=== PATIENT | male | born 1940 | race Caucasian/White ===

== ENCOUNTER 2018-08-29 11:15 | Emergency (ER) | payer MEDICARE, MEDICAID ==
[~2018-08-29] VITALS: Ht 167.6 cm; Wt 72.0 kg
[2018-08-29 11:15] VITALS: BP 128/69
--- NOTE | 2018-08-29 11:15 | NUR ---
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
--- NOTE | 2018-08-29 12:00 | NUR ---
pt upright on gurney awake & calm, pt refused to allow staff to lock up personal belongings- security able to retrieve them from pt, responds to staff but easily agitated (threatening to evens, threatening to leave AMA), NAD, comfort measures provided, pt in safe environment, sitter in view. personal belongings in bag x1 placed in locker.
[2018-08-29] MEDS ORDERED: Oxycodone PO (12:15)
[2018-08-29] MEDS ORDERED: DIVA500T2 PO (12:15)
[2018-08-29] MEDS ORDERED: METH5TAB2 PO (12:15)
[2018-08-29] MEDS ORDERED: MULT-658 PO (12:15)
[2018-08-29] MEDS ORDERED: OXYC10TA47 PO (12:15)
[2018-08-29 13:55] LABS: AMPHETAMINE SCREEN, URINE Negative (Negative); BARBITURATE SCREEN, URINE Negative (Negative); BENZODIAZEPINE SCREEN, URINE Negative (Negative); CANNABINOID SCREEN, URINE Negative (Negative); COCAINE SCREEN, URINE Negative (Negative); METHADONE SCREEN, URINE Positive (Negative); OPIATE SCREEN, URINE Positive (Negative)
[2018-08-29 13:57] LABS: MICROSCOPIC NOT IND
[2018-08-29 14:00] LABS: CULTURE INDICATED? NO
--- NOTE | 2018-08-29 14:02 | NUR ---
pt pacing in room, easily agitated- redirection minimally helpful, NAD, comfort measures provided, pt remains in safe environment, sitter in view.
[2018-08-29] MEDS ORDERED: ZIPRASIDONE 20 MG INJ IM ONE ×2 (14:08→14:30)
--- NOTE | 2018-08-29 14:22 | NUR ---
pt became increasingly agitated with staff, refuses to listen to answers of questions he asks, aggressively approaching staff getting within 1 foot of personal space, attepting to leave facility; security called to assist in redirecting/calming pt but unsuccessful, ERP aware, pt medicated per eMAR & soft restraints to BUE placed for pt/staff safety. Addendum: 08/29/18 at 1537 by AMANDA pt became increasingly agitated with staff, refuses to listen to answers to questions he asks, aggressively approaching staff getting within 1 foot of personal space, attempting to leave facility; security called to assist in redirecting/calming pt but unsuccessful, ERP aware, pt medicated per eMAR & soft restraints to BUE placed for pt/staff safety.
--- NOTE | 2018-08-29 15:03 | NUR ---
pt awake awake, calmer & more cooperative now that daughter (Tele) is at BS, NAD, comfort measures provided, pt remains in safe environment with soft restraints in place, sitter in view.
[2018-08-29 15:06] LABS: BASOPHILS # (AUTO) 0.03 x10^3/uL (0-0.1); BASOPHILS % (AUTO) 0 % (0-1); EOSINOPHILS # (AUTO) 0.09 x10^3/uL (0-0.4); EOSINOPHILS % (AUTO) 1 % (1-7); LYMPHOCYTES # (AUTO) 1.51 x10^3/uL (1-3.4); LYMPHOCYTES % (AUTO) 17 % (22-44); MD NO; MEAN CORPUSCULAR HEMOGLOBIN 30.7 pg (27.5-34.5); MEAN CORPUSCULAR VOLUME 93.2 fL (81-97); MEAN PLATELET VOLUME 10.6 fL (7.4-10.4); MONOCYTES # (AUTO) 0.52 x10^3/uL (0.2-0.8); MONOCYTES % (AUTO) 6 % (2-9); NEUTROPHILS # (AUTO) 6.51 x10^3/uL (1.8-6.8); NEUTROPHILS % (AUTO) 75 % (42-75); PLATELET COUNT 205 x10^3/uL (130-400); RED BLOOD COUNT 4.63 x10^6/uL (4.38-5.82); RED CELL DISTRIBUTION WIDTH 14.8 % (9.4-14.8)
[2018-08-29 15:17] LABS: ALBUMIN 3.4 g/dL (3.4-5.0); ANION GAP 10 mmol/L (5-15); CALCIUM 8.8 mg/dL (8.5-10.1); CHLORIDE 106 mmol/L (98-107); CREATININE 1.11 mg/dL (0.7-1.3)
[2018-08-29 15:23] LABS: ACETAMINOPHEN < 2 mcg/mL (10-30); SALICYLATE LEVEL < 1.7 mg/dL (2.8-20.0)
--- NOTE | 2018-08-29 16:02 | NUR ---
pt upright on gurney awake, mostly calm & cooperative, NAD, comfort measures provided, pt remains in safe environment with soft restraints in place, twylater at BS, sitter in view.
--- NOTE | 2018-08-29 16:05 | NUR ---
pt calmer & verbalized understanding of restraint placement & DC, restraints DC'd, pt assessed by RN from 3E, pt to be DC'd & readmitted to 3E at ~1800 tonight.
--- NOTE | 2018-08-29 17:01 | NUR ---
pt upright on gurney awake, mostly calm & cooperative, NAD, comfort measures provided, pt remains in safe environment, daughter at BS, sitter in view, dinner tray given.
--- NOTE | 2018-08-29 17:20 | NUR ---
Patient & daughter given discharge instructions and they have confirmed that they understand the instructions. Patient ambulatory with steady gait, transferred to 3E rm 387, JODY Morgan.
== END 2018-08-29 17:58 ==
LOC: ED 13:44
DX: F99 Mental disorder, not otherwise specified (principal); R45.850 Homicidal ideations; Z91.14 Patient's other noncompliance with medication regimen
CPT/HCPCS: 36415; 80048; 80307; 80329; 81003; 82040; 85025; 96372; 99285; J3486; G0480

== ENCOUNTER 2018-08-29 16:06 | Inpatient (IN) | payer MEDICARE, MEDICAID ==
[~2018-08-29] VITALS: Ht 168.9 cm; Wt 67.8 kg
[~2018-08-29 16:06] MED LIST: DIVA500T2 PO; METH5TAB2 PO; MULT-658 PO; OXYC10TA47 PO; Oxycodone PO
[2018-08-29] MEDS ORDERED: ONDANSETRON ODT 4 MG PO PRN (16:30)
[2018-08-29] MEDS ORDERED: BISACODYL 10 MG SUPP PR PRN (16:30)
[2018-08-29] MEDS ORDERED: POLYETHYLENE GLYCOL 17 GM PACKET PO PRN (16:30)
[2018-08-29] MEDS: OxyconTIN ER 10 MG TAB.ER PO SCH ×2 (20:45→22:54)
[2018-08-29] MEDS: QUETIAPINE 25MG TABLET PO SCH ×2 (20:46→22:54)
[2018-08-29] MEDS: DIVALPROEX 250 MG TABLET.DR PO SCH ×2 (20:46→22:53)
[2018-08-29 20:50] VITALS: BP 176/90
[2018-08-30] MEDS: DIVALPROEX 250 MG TABLET.DR PO SCH (08:43)
[2018-08-30] MEDS: METHADONE 5 MG TABLET PO SCH ×3 (08:43→17:39)
[2018-08-30] MEDS: OxyconTIN ER 10 MG TAB.ER PO SCH ×2 (08:44→21:00)
[2018-08-30] MEDS: MULTIVITAMIN 1 TABLET PO SCH (08:44)
[2018-08-30] MEDS: SENNA/DOCUSATE TABLET PO SCH (08:44)
[2018-08-30] MEDS: AMLODIPINE 2.5 MG TABLET PO SCH (18:15)
[2018-08-30 18:51] LABS: HEMOGLOBIN A1C 6.1 % (4.2-6.3)
[2018-08-30 19:25] VITALS: BP 106/66
[2018-08-30] MEDS ORDERED: QUETIAPINE 25MG TABLET PO SCH (21:00)
[2018-08-30] MEDS: DIVALPROEX 500 MG TABLET.DR PO SCH (21:00)
[2018-08-31] MEDS: METHADONE 5 MG TABLET PO SCH ×2 (08:40→17:07)
[2018-08-31] MEDS: DIVALPROEX 500 MG TABLET.DR PO SCH (08:41)
[2018-08-31] MEDS: MULTIVITAMIN 1 TABLET PO SCH (08:41)
[2018-08-31] MEDS: AMLODIPINE 2.5 MG TABLET PO SCH (08:41)
[2018-08-31] MEDS: ESTRADIOL 1 MG TABLET PO SCH (08:41)
[2018-08-31] MEDS: OxyconTIN ER 10 MG TAB.ER PO SCH ×2 (08:41→21:00)
[2018-08-31] MEDS: SENNA/DOCUSATE TABLET PO SCH (08:41)
[2018-08-31 17:57] VITALS: BP 135/73
[2018-08-31 18:05] LABS: HCT (SEDRATE) 43.5 % (39.2-51.8)
[2018-08-31 18:16] LABS: ANION GAP 7 mmol/L (5-15); CALCIUM 8.5 mg/dL (8.5-10.1); CHLORIDE 107 mmol/L (98-107); CHOLESTEROL, TOTAL 147 mg/dL (140-239); CREATININE 1.02 mg/dL (0.7-1.3); TRIGLYCERIDES 119 mg/dL (50-200); VLDL CHOLESTEROL 24 mg/dL (0-25)
[2018-08-31 18:41] LABS: CHOL/HDL RATIO 4.3; HDL CHOL % 23 % (26-37); HDL CHOLESTEROL (DIRECT) 34 mg/dL (40-60); LDL CHOLESTEROL,CALCULATED 89 mg/dL (54-169); LDL/HDL RATIO 2.6 (0.5-3.0)
[2018-08-31 18:42] LABS: T4 (THYROXINE) 7.8 mcg/dL (4.5-12.1); THYROID STIMULATING HORMONE 0.631 mIU/L (0.358-3.740)
[2018-08-31] MEDS: DIVALPROEX 125 MG CAP.SPRINK PO SCH (19:58)
[2018-08-31] MEDS: HALOPERIDOL 2 MG/ML ORAL SOL PO SCH (19:58)
[2018-08-31] MEDS: QUETIAPINE 25MG TABLET PO PRN (21:53)
[2018-09-01 07:27] VITALS: BP 128/64
[2018-09-01] MEDS: DIVALPROEX 125 MG CAP.SPRINK PO SCH ×2 (09:03→19:24)
[2018-09-01] MEDS: ESTRADIOL 1 MG TABLET PO SCH (09:03)
[2018-09-01] MEDS: AMLODIPINE 2.5 MG TABLET PO SCH (09:03)
[2018-09-01] MEDS: MULTIVITAMIN 1 TABLET PO SCH (09:03)
[2018-09-01] MEDS: OxyconTIN ER 10 MG TAB.ER PO SCH ×2 (09:03→19:24)
[2018-09-01] MEDS: SENNA/DOCUSATE TABLET PO SCH (09:03)
[2018-09-01] MEDS: METHADONE 5 MG TABLET PO SCH ×2 (09:04→16:14)
[2018-09-01] MEDS: HALOPERIDOL 2 MG/ML ORAL SOL PO SCH ×3 (09:04→19:25)
[2018-09-01 19:39] VITALS: BP 124/67
--- NOTE | 2018-09-01 21:52 | NUR ---
MIGUEL VILLALBA - Fall Risk Medications present and NOT receiving anticoagulants. Signed: 09/01/18 at 2152 by Yovanny PATRICK
[2018-09-01 22:03] VITALS: BP 163/82
[2018-09-02] MEDS: ACETAMINOPHEN 325 MG TABLET PO PRN (05:54)
[2018-09-02 07:16] VITALS: BP 129/78
[2018-09-02] MEDS: ESTRADIOL 1 MG TABLET PO SCH (08:15)
[2018-09-02] MEDS: HALOPERIDOL 2 MG/ML ORAL SOL PO SCH ×3 (08:15→19:31)
[2018-09-02] MEDS: AMLODIPINE 2.5 MG TABLET PO SCH (08:16)
[2018-09-02] MEDS: METHADONE 5 MG TABLET PO SCH ×2 (08:16→16:43)
[2018-09-02] MEDS: MULTIVITAMIN 1 TABLET PO SCH (08:16)
[2018-09-02] MEDS: OxyconTIN ER 10 MG TAB.ER PO SCH (08:16)
[2018-09-02] MEDS: DIVALPROEX 125 MG CAP.SPRINK PO SCH ×2 (08:16→19:30)
[2018-09-02] MEDS: SENNA/DOCUSATE TABLET PO SCH (08:17)
[2018-09-02] MEDS: OXYcodone IR 5MG TABLET PO PRN ×2 (11:12→23:38)
[2018-09-02 19:24] VITALS: BP 143/81
[2018-09-02] MEDS ORDERED: OxyconTIN ER 10 MG TAB.ER PO SCH (21:00)
[2018-09-03 07:13] VITALS: BP 130/76
[2018-09-03] MEDS: HALOPERIDOL 2 MG/ML ORAL SOL PO SCH ×3 (08:13→20:14)
[2018-09-03] MEDS: DIVALPROEX 125 MG CAP.SPRINK PO SCH ×2 (08:13→20:13)
[2018-09-03] MEDS: METHADONE 5 MG TABLET PO SCH ×2 (08:14→16:04)
[2018-09-03] MEDS: MULTIVITAMIN 1 TABLET PO SCH (08:14)
[2018-09-03] MEDS: AMLODIPINE 2.5 MG TABLET PO SCH (08:14)
[2018-09-03] MEDS: ESTRADIOL 1 MG TABLET PO SCH (08:14)
[2018-09-03] MEDS: SENNA/DOCUSATE TABLET PO SCH (09:00)
[2018-09-03] MEDS: QUETIAPINE 25MG TABLET PO PRN (18:00)
[2018-09-03 19:29] VITALS: BP 141/80
[2018-09-04] MEDS: SENNA/DOCUSATE TABLET PO SCH (08:52)
[2018-09-04] MEDS: ESTRADIOL 1 MG TABLET PO SCH (08:52)
[2018-09-04] MEDS: METHADONE 5 MG TABLET PO SCH ×2 (08:52→17:11)
[2018-09-04] MEDS: AMLODIPINE 2.5 MG TABLET PO SCH (08:52)
[2018-09-04] MEDS: MULTIVITAMIN 1 TABLET PO SCH (08:52)
[2018-09-04] MEDS: HALOPERIDOL 2 MG/ML ORAL SOL PO SCH ×3 (08:52→20:03)
[2018-09-04] MEDS: DIVALPROEX 125 MG CAP.SPRINK PO SCH ×2 (08:53→20:03)
[2018-09-04 09:39] VITALS: BP 91/54
[2018-09-04 20:04] VITALS: BP 114/64
[2018-09-05 07:21] VITALS: BP 122/76
[2018-09-05] MEDS: HALOPERIDOL 2 MG/ML ORAL SOL PO SCH ×3 (08:48→19:40)
[2018-09-05] MEDS: DIVALPROEX 125 MG CAP.SPRINK PO SCH ×2 (08:48→19:39)
[2018-09-05] MEDS: ESTRADIOL 1 MG TABLET PO SCH (08:48)
[2018-09-05] MEDS: MULTIVITAMIN 1 TABLET PO SCH (08:49)
[2018-09-05] MEDS: METHADONE 5 MG TABLET PO SCH ×2 (08:49→16:17)
[2018-09-05] MEDS: AMLODIPINE 2.5 MG TABLET PO SCH (08:49)
[2018-09-05] MEDS: SENNA/DOCUSATE TABLET PO SCH (08:57)
[2018-09-05 19:29] VITALS: BP 136/77
[2018-09-05] MEDS: ACETAMINOPHEN 325 MG TABLET PO PRN (19:40)
[2018-09-05] MEDS: QUETIAPINE 25MG TABLET PO PRN (20:00)
[2018-09-06 07:15] VITALS: BP 156/83
[2018-09-06] MEDS: HALOPERIDOL 2 MG/ML ORAL SOL PO SCH ×3 (08:08→19:56)
[2018-09-06] MEDS: MULTIVITAMIN 1 TABLET PO SCH (09:00)
[2018-09-06] MEDS: SENNA/DOCUSATE TABLET PO SCH (09:00)
[2018-09-06] MEDS: METHADONE 5 MG TABLET PO SCH ×2 (09:00→16:41)
[2018-09-06] MEDS: ESTRADIOL 1 MG TABLET PO SCH (13:27)
[2018-09-06] MEDS: AMLODIPINE 2.5 MG TABLET PO SCH (13:27)
[2018-09-06] MEDS: DIVALPROEX 125 MG CAP.SPRINK PO SCH ×2 (13:27→19:56)
[2018-09-06] MEDS: OXYcodone IR 5MG TABLET PO PRN (13:37)
[2018-09-06 19:14] VITALS: BP 126/78
[2018-09-07 08:00] VITALS: BP 121/64
[2018-09-07] MEDS: MULTIVITAMIN 1 TABLET PO SCH (08:21)
[2018-09-07] MEDS: ESTRADIOL 1 MG TABLET PO SCH (08:21)
[2018-09-07] MEDS: DIVALPROEX 125 MG CAP.SPRINK PO SCH ×2 (08:21→19:41)
[2018-09-07] MEDS: METHADONE 5 MG TABLET PO SCH ×2 (08:21→16:18)
[2018-09-07] MEDS: AMLODIPINE 2.5 MG TABLET PO SCH (08:21)
[2018-09-07] MEDS: HALOPERIDOL 2 MG/ML ORAL SOL PO SCH ×3 (08:21→19:41)
[2018-09-07] MEDS: SENNA/DOCUSATE TABLET PO SCH (08:22)
[2018-09-07] MEDS: QUETIAPINE 25MG TABLET PO PRN (16:32)
[2018-09-07] MEDS: OXYcodone IR 5MG TABLET PO PRN (17:53)
[2018-09-07 19:39] VITALS: BP 120/74
[2018-09-08 07:13] VITALS: BP 144/82
[2018-09-08] MEDS: DIVALPROEX 125 MG CAP.SPRINK PO SCH ×2 (08:18→20:13)
[2018-09-08] MEDS: MULTIVITAMIN 1 TABLET PO SCH (08:18)
[2018-09-08] MEDS: ESTRADIOL 1 MG TABLET PO SCH (08:18)
[2018-09-08] MEDS: SENNA/DOCUSATE TABLET PO SCH (08:18)
[2018-09-08] MEDS: HALOPERIDOL 2 MG/ML ORAL SOL PO SCH ×5 (08:19→21:00)
[2018-09-08] MEDS: METHADONE 5 MG TABLET PO SCH ×2 (08:19→16:15)
[2018-09-08] MEDS: AMLODIPINE 2.5 MG TABLET PO SCH (08:19)
[2018-09-09 07:05] VITALS: BP 150/74
[2018-09-09] MEDS: MULTIVITAMIN 1 TABLET PO SCH (08:06)
[2018-09-09] MEDS: ESTRADIOL 1 MG TABLET PO SCH (08:06)
[2018-09-09] MEDS: METHADONE 5 MG TABLET PO SCH ×2 (08:06→17:13)
[2018-09-09] MEDS: DIVALPROEX 125 MG CAP.SPRINK PO SCH ×3 (08:07→20:25)
[2018-09-09] MEDS: AMLODIPINE 2.5 MG TABLET PO SCH (08:07)
[2018-09-09] MEDS: SENNA/DOCUSATE TABLET PO SCH (08:11)
[2018-09-09] MEDS: HALOPERIDOL 2 MG/ML ORAL SOL PO SCH ×3 (14:54→20:25)
[2018-09-09] MEDS: OXYcodone IR 5MG TABLET PO PRN (15:53)
[2018-09-09 19:25] VITALS: BP 132/75
[2018-09-09] MEDS: QUETIAPINE 25MG TABLET PO PRN (21:53)
[2018-09-10] MEDS: DIVALPROEX 125 MG CAP.SPRINK PO SCH ×2 (09:08→20:03)
[2018-09-10] MEDS: MULTIVITAMIN 1 TABLET PO SCH (09:09)
[2018-09-10] MEDS: AMLODIPINE 2.5 MG TABLET PO SCH (09:09)
[2018-09-10] MEDS: METHADONE 5 MG TABLET PO SCH ×2 (09:09→16:47)
[2018-09-10] MEDS: SENNA/DOCUSATE TABLET PO SCH (09:09)
[2018-09-10] MEDS: ESTRADIOL 1 MG TABLET PO SCH (09:09)
[2018-09-10] MEDS: HALOPERIDOL 2 MG/ML ORAL SOL PO SCH ×3 (09:09→20:02)
[2018-09-10 13:45] VITALS: BP 154/72
[2018-09-10 19:50] VITALS: BP 137/74
[2018-09-10] MEDS: QUETIAPINE 25MG TABLET PO PRN (20:02)
[2018-09-10] MEDS: OXYcodone IR 5MG TABLET PO PRN (22:12)
[2018-09-11 07:43] VITALS: BP 113/67
[2018-09-11] MEDS: AMLODIPINE 2.5 MG TABLET PO SCH (08:57)
[2018-09-11] MEDS: MULTIVITAMIN 1 TABLET PO SCH (08:57)
[2018-09-11] MEDS: ESTRADIOL 1 MG TABLET PO SCH (08:57)
[2018-09-11] MEDS: METHADONE 5 MG TABLET PO SCH ×2 (08:58→17:05)
[2018-09-11] MEDS: SENNA/DOCUSATE TABLET PO SCH (08:58)
[2018-09-11] MEDS: DIVALPROEX 125 MG CAP.SPRINK PO SCH ×2 (08:58→21:12)
[2018-09-11] MEDS: HALOPERIDOL 2 MG/ML ORAL SOL PO SCH ×3 (08:58→21:12)
[2018-09-11] MEDS: OXYcodone IR 5MG TABLET PO PRN ×2 (18:08→22:33)
[2018-09-11 20:55] VITALS: BP 144/85
[2018-09-11] MEDS: QUETIAPINE 25MG TABLET PO PRN (21:12)
[2018-09-12 07:37] VITALS: BP 113/67
[2018-09-12] MEDS: ESTRADIOL 1 MG TABLET PO SCH (08:34)
[2018-09-12] MEDS: DIVALPROEX 125 MG CAP.SPRINK PO SCH ×2 (08:34→20:02)
[2018-09-12] MEDS: AMLODIPINE 2.5 MG TABLET PO SCH (08:34)
[2018-09-12] MEDS: SENNA/DOCUSATE TABLET PO SCH (08:34)
[2018-09-12] MEDS: MULTIVITAMIN 1 TABLET PO SCH (08:34)
[2018-09-12] MEDS: METHADONE 5 MG TABLET PO SCH ×2 (08:34→17:18)
[2018-09-12] MEDS: HALOPERIDOL 2 MG/ML ORAL SOL PO SCH ×3 (10:22→20:03)
[2018-09-12 19:33] VITALS: BP 146/77
[2018-09-12] MEDS: QUETIAPINE 25MG TABLET PO PRN (20:03)
[2018-09-13] MEDS: METHADONE 5 MG TABLET PO SCH ×2 (08:00→16:19)
[2018-09-13] MEDS: DIVALPROEX 125 MG CAP.SPRINK PO SCH ×2 (09:00→20:37)
[2018-09-13] MEDS: AMLODIPINE 2.5 MG TABLET PO SCH (09:00)
[2018-09-13] MEDS: MULTIVITAMIN 1 TABLET PO SCH (09:00)
[2018-09-13] MEDS: HALOPERIDOL 2 MG/ML ORAL SOL PO SCH ×3 (09:00→20:37)
[2018-09-13] MEDS: ESTRADIOL 1 MG TABLET PO SCH (09:00)
[2018-09-13] MEDS: SENNA/DOCUSATE TABLET PO SCH (09:00)
[2018-09-13] MEDS: OXYcodone IR 5MG TABLET PO PRN (17:31)
[2018-09-13] MEDS ORDERED: HALO2ORA9 PO (17:43)
[2018-09-13] MEDS ORDERED: ESTR1TAB15 PO (17:43)
[2018-09-13] MEDS ORDERED: MULT1TAB60 PO (17:43)
[2018-09-13] MEDS ORDERED: DIVA125C2 PO (17:43)
[2018-09-13] MEDS ORDERED: AMLO2.5T5 PO (17:43)
[2018-09-13 19:47] VITALS: BP 155/82
[2018-09-13] MEDS: QUETIAPINE 25MG TABLET PO PRN (20:37)
[2018-09-14 07:44] VITALS: BP 132/71
[2018-09-14] MEDS: ESTRADIOL 1 MG TABLET PO SCH (08:50)
[2018-09-14] MEDS: METHADONE 5 MG TABLET PO SCH (08:50)
[2018-09-14] MEDS: MULTIVITAMIN 1 TABLET PO SCH (08:51)
[2018-09-14] MEDS: AMLODIPINE 2.5 MG TABLET PO SCH (08:51)
[2018-09-14] MEDS: SENNA/DOCUSATE TABLET PO SCH (08:51)
[2018-09-14] MEDS: DIVALPROEX 125 MG CAP.SPRINK PO SCH (08:51)
[2018-09-14] MEDS: HALOPERIDOL 2 MG/ML ORAL SOL PO SCH (08:51)
== END 2018-09-14 11:00 | DRG 57 ==
LOC: 3E 18:10
PROVIDERS: ADMIT Psychiatry & Neurology Psychosomatic Medicine; ATTEND Psychiatry & Neurology Psychosomatic Medicine
DX: G30.9 Alzheimer's disease, unspecified (principal); F02.81 Dementia in other diseases classified elsewhere, unspecified severity, with behavioral disturbance; F60.9 Personality disorder, unspecified; G89.4 Chronic pain syndrome; I10 Essential (primary) hypertension; Z79.891 Long term (current) use of opiate analgesic; Z71.89 Other specified counseling; Z79.899 Other long term (current) drug therapy; Z91.018 Allergy to other foods; Z87.891 Personal history of nicotine dependence; Z82.49 Family history of ischemic heart disease and other diseases of the circulatory system
CPT/HCPCS: 36415; 71045; 80048; 80061; 82140; 82607; 83036; 84436; 84443; 85651; 86592; 93005